=== PATIENT | male | born 2000 | race American Indian/Alaskan Native ===

== ENCOUNTER 2019-11-20 15:07 | Emergency (ER) | payer SELFPAY ==
[2019-11-20 15:14] VITALS: BP 141/64
[2019-11-20] MEDS ORDERED: diphenhydrAMINE 50 MG/ML VIAL IV ONE (17:10)
[2019-11-20] MEDS ORDERED: METOCLOPRAMIDE 10 MG/2 ML INJ IV ONE (17:10)
[2019-11-20] MEDS ORDERED: KETOROLAC 30 MG/1 ML INJ IV ONE (17:10)
--- NOTE | 2019-11-20 17:12 | Emergency Department Report ---
ED Headache HPI - General Chief Complaint: Headache Stated Complaint: HEADACHE Time Seen by Provider: 11/20/19 17:10 Source: patient - History of Present Illness Initial Comments: 19-year-old -[place] male presents to the emergency room complaining of a headache for the last 3 days. Patient states that it started on Monday is located in the back and it feels tight. Patient denies any nausea vomiting does admit to photophobia when it first started but that has relieved. Patient reports his pain is a 6 out of 10. Patient states that last night he did take a BC powder woke up with the same intensity 5 hours later for work. Patient denies any head trauma no change in vision. Head Injury Location: occipital Recent Head Trauma: no recent headache/trauma Associated Symptoms: denies: loss of consciousness, nausea/vomiting, nasal congestion, nasal drainage, vision changes Allergies/Adverse Reactions: Allergies No Known Allergies Allergy (Unverified 11/20/19 15:13) ED Review of Systems ROS: Stated complaint: HEADACHE Other details as noted in HPI ED Past Medical Hx - Past Medical History Previous Medical History?: No - Surgical History Past Surgical History?: No - Social History Smoking Status: Never Smoker Substance Use Type: None ED Physical Exam - General Limitations: No Limitations General appearance: alert, in no apparent distress - Head Head exam: Present: atraumatic, normocephalic - Eye Eye exam: Present: normal appearance, EOMI - ENT ENT exam: Present: mucous membranes moist - Extremities Exam Extremities exam: Present: normal inspection, full ROM - Back Exam Back exam: Present: normal inspection, full ROM - Neurological Exam Neurological exam: Present: alert, oriented X3, normal gait - Expanded Neurological Exam Expanded Patient oriented to: Present: person, place, time Speech: Present: fluid speech Cranial nerves: EOM's Intact: Normal, Gag Reflex: Normal, Tongue Deviation: Normal, Nystagmus: Normal, Facial Sensation: Normal, Facial Palsy with Forehead Movement: Normal, Facial Palsy without Forehead Movement: Normal Cerebellar function: Finger to Nose: Normal, Heel to Smith: Normal, Romberg: Normal Upper motor neuron: Jerardo Neglect: Normal, Pronator Drift: Normal, Sensory Extinction: Normal Sensory exam: Upper Extremity Light Touch: Normal, Upper Extremity Pin Prick: Normal, Upper Extremity Temperature: Normal, UE 2 Point Discrimination: Normal, Lower Extremity Light Touch: Normal, Lower Extremity Pin Prick: Normal, Lower Extremity Temperature: Normal, LE 2 Point Discrimination: Normal Motor strength exam: RUE: 4, LUE: 4, RLE: 4, LLE: 4 Best Eye Response ([place]): (4) open spontaneously Best Motor Response ([place]): (6) obeys commands Best Verbal Response ([place]): (5) oriented [place] Total: 15 - Psychiatric Psychiatric exam: Present: normal affect, normal mood - Skin Skin exam: Present: warm, dry, intact, normal color. Absent: rash ED Course Vital Signs 11/20/19 15:12 Temperature 97.8 F Pulse Rate 63 Respiratory 16 Rate Blood Pressure 141/64 [Right] O2 Sat by Pulse 98 Oximetry - Reevaluation(s) Reevaluation #1: 11/20/19 17:35 Patient reports he feels much better after having medication. Patient be prepared to be discharged. Critical care attestation.: If time is entered above; I have spent that time in minutes in the direct care of this critically ill patient, excluding procedure time. ED Disposition Clinical Impression: Headache Qualifiers: Headache type: unspecified Headache chronicity pattern: acute headache Intractability: not intractable Qualified Code(s): R51 - Headache Disposition: DC-01 TO HOME OR SELFCARE Is pt being admited?: No Does the pt Need Aspirin: No Condition: Stable Instructions: Acute Headache (ED) Additional Instructions: Please be sure to hydrate well with water or Gatorade. You can take [id number] ibuprofen or Tylenol or even Excedrin works well for headaches. Follow-up with your primary care provider. If your headaches tend to be persistent and reoccurring I recommend following up with a neurologist. Referrals: DOROTHEA NGUYEN MD [Staff Physician] - 3-5 Days Forms: Work/School Release Form(ED)
== END 2019-11-20 17:59 | disposition home or self-care (01) ==
LOC: ED 15:07
DX: R51 Headache (principal)
CPT/HCPCS: 96374; 96375; 99282; J1200; J1885; J2765